=== PATIENT | male | born 1975 | race Caucasian/White ===

== ENCOUNTER 2023-07-31 06:37 | Outpatient (OUT) | payer OTHER, SELFPAY ==
[2023-07-31 07:22] LABS: Basophils Percent Auto 0.6 % (0.2-2.0); Eosinophils Absolute Auto 0.1 10^3/uL (0.0-0.7); Eosinophils Percent Auto 1.8 % (0.9-7.0); Hematocrit 44.4 % (42.0-54.0); Hemoglobin 14.9 g/dL (14.0-18.0); Immature Granulocytes Abs Auto 0.03 10^3/uL (0.00-0.03); Immature Granulocytes Pct Auto 0.4 % (0.0-0.5); Lymphocytes Absolute Auto 2.5 10^3/uL (1.2-3.8); Lymphocytes Percent Auto 35.2 % (20.5-60.0); Mean Corpuscular HGB Conc 33.6 g/dL (29.9-35.2); Mean Corpuscular Hemoglobin 30.7 pg (25.9-34.0); Mean Corpuscular Volume 91.4 fL (80.0-94.0); Mean Platelet Volume 10.5 fL (9.5-13.5); Monocytes Absolute Auto 0.6 10^3/uL (0.3-0.8); Monocytes Percent Auto 7.8 % (1.7-12.0); Neutrophils Absolute Auto 3.9 10^3/uL (1.4-6.5); Neutrophils Percent Auto 54.2 % (43.0-75.0); Platelet Count 218 10^3/uL (150-450); Red Blood Count 4.86 10^6/uL (4.70-6.10); Red Cell Distribution Width 12.9 % (11.0-15.0); White Blood Count 7.2 10^3/uL (4.0-11.0)
[2023-07-31 07:32] LABS: Erythrocyte Sedimentation Rate 21 mm/hr (<=15)
[2023-07-31 14:17] LABS: Alanine Aminotransferase 163 U/L (16-63); Albumin Level 3.9 g/dL (3.4-5.0); Alkaline Phosphatase 60 U/L (46-116); Anion Gap 9.4; Aspartate Amino Transferase 58 U/L (15-37); BUN Creatinine Ratio 16.7; Bilirubin Total 0.5 mg/dL (0.2-1.0); Carbon Dioxide 30.5 mmol/L (21.0-32.0); Chloride 103 mmol/L (98-107); Estimated GFR (African America >60 (>=60); Estimated GFR (Non-African Ame >60 (>=60); Globulin 3.9 g/dL; Glucose 90 mg/dL (74-106); Magnesium 2.3 mg/dL (1.8-2.4); Potassium 3.9 mmol/L (3.5-5.1); Sodium 139 mmol/L (136-145); Thyroid Stimulating Hormone 4.298 uIU/mL (0.358-3.740); Total Protein 7.8 g/dL (6.4-8.2)
[2023-07-31 14:18] LABS: C Reactive Protein <0.2 mg/dL (<=1.0)
[2023-07-31 17:25] LABS: Free T4 0.86 ng/dL (0.76-1.46)
[2023-08-01 06:08] LABS: Rheumatoid Factor (RF) 10.2 IU/mL (<14.0)
[2023-08-01 14:13] LABS: Antinuclear Antibodies, IFA Negative (.)
== END 2023-07-31 06:38 | disposition home or self-care (01) ==
LOC: LAB 06:42
DX: R51.9 Headache, unspecified (principal); R53.83 Other fatigue; M25.50 Pain in unspecified joint; E55.9 Vitamin D deficiency, unspecified; R20.2 Paresthesia of skin
CPT/HCPCS: 36415; 80053; 82306; 82607; 83735; 84439; 84443; 85025; 85652; 86038; 86140; 86430; 86431

== ENCOUNTER 2024-09-20 10:34 | Emergency (ER) | payer OTHER, SELFPAY ==
[2024-09-20 10:37] VITALS: BP 153/96; PULSE 71; TEMP 36.7; O2SAT 93; BMI 33.1
--- NOTE | 2024-09-20 10:40 | CT_ITS ---
The [address] [address] Patient Name: EVELYN CRUZ MRN: [id number] date: 1975 Sex: M Assigned Patient Location: ER Current Patient Location: ER Accession/Order Number: [id number] Exam Date: 09/20/2024 10:55 Report Date: 09/20/2024 11:42 At the request of: FRANKLIN LEE Procedure: CT abdomen pelvis wo con CT ABDOMEN AND PELVIS WITHOUT CONTRAST: 09/20/2024 10:55 AM EST Clinical Data: left flank pain hx of kidney stone Comparison: No previous Unenhanced helically acquired data per protocol. The lack of IV contrast material hampers evaluation of the viscera, for adenopathy, and of the vasculature. The lack of oral contrast medium to some extent hampers evaluation of the bowel. All CT scans at this facility use dose modulation, iterative reconstruction, and/or weight based dosing when appropriate to reduce radiation dose to as low as reasonably achievable. FINDINGS: LOWER THORAX: Probable areas of mild hypoventilation at the bases, left greater than right LIVER: Mild fatty infiltration. Superimposed 9 mm hypodense focus right lobe. SPLEEN: Enlarged to 16.5 cm in length. Homogeneous in density on this unenhanced study GB/BILIARY: No acute findings at CT. PANCREAS: No acute findings. ADRENALS: No acute findings. KIDNEYS/URETERS: Kidneys are symmetric in size and overall density on this unenhanced exam. There is slight left perinephric stranding. Several scattered calculi right kidney. No right hydronephrosis or hydroureter. No right ureteral calculi. Several left renal calculi are more numerous than on the right. There is moderate left hydronephrosis and hydroureter. At the very inner lip of the UVJ and predominantly extending into the urinary bladder there is a 6 mm calculus. VESSELS: No AAA ABDOMINAL NODES: No obvious adenopathy. PELVIC NODES: No obvious adenopathy. BLADDER: Contains a mild amount of fluid. REPRODUCTIVE: No acute finding at CT PERITONEUM: No free air. No free fluid. EXTRAPERITONEUM: No acute findings. BOWEL: No GI obstruction. Modest amount stool within the colon. Apparent moderate concentric thickening of the rectum. However, no peribowel stranding BODY WALL: Rectus sheaths are splayed. Midline abdominal wall is very thin. Small umbilical hernia containing fat but no bowel. BONES: Likely, hemangioma L5 vertebral body. At the inferior edge of the field symmetric longitudinally oriented lucencies within septations and thin margins in both intertrochanteric regions extending into the shafts. Entire inferior extent is not included on this exam. OTHER: None. CT/CT abdomen pelvis wo con IMPRESSION: 1. Bilateral nephrolithiasis. 2. Moderate left hydronephrosis and hydroureter. At the inner lip of the UVJ and predominantly in the bladder there is a 6 mm calculus. 3. Mild fatty infiltration of liver. Small superimposed hypodense focus not right lobe of liver is nonspecific. If desired, follow-up limited ultrasound 4. Splenomegaly. No evidence of adenopathy. 5.. Unusual findings in the proximal as described. Entire inferior extent is not covered on this exam. Recommend correlation with bilateral femur plain films. 6. Apparent moderate concentric thickening of the rectum but no peribowel stranding. Clinical correlation is needed. Electronically authenticated by: STEPHANIE OBRIEN Date: 09/20/2024 11:42
--- NOTE | 2024-09-20 10:46 | ED_ITS ---
HPI - Abdominal Pain General Chief Complaint: Abdominal Pain Stated Complaint: FLANK PAIN Time Seen by Provider: 09/20/24 10:40 Source: patient Mode of arrival: walk-in History of Present Illness HPI narrative: The patient is a 49 years old male with history of kidney stone the last episode he had was more than 2 years ago, he is coming to us with 5 days history of left-sided flank pain that is intermittent, the pain is crampy and he mentioned that for the last 5 days he notes he is not peeing enough but he is having urgency No fever no chills no nausea or vomiting and his last meal was yesterday Related Data Previous Rx's ?Medication ?Instructions ?Recorded cephalexin 500 mg capsule 500 mg PO Q8H 7 days #21 caps 09/20/24 naproxen 250 mg tablet 250 mg PO BID PRN pain #14 tabs 09/20/24 tamsulosin 0.4 mg capsule (Flomax) 0.4 mg PO DAILY #10 caps 09/20/24 Allergies Allergy/AdvReac Type Severity Reaction Status Date / Time erythromycin base Allergy Severe Hives Verified 09/20/24 10:40 Review of Systems ROS Status of ROS 10 or more systems reviewed and unremark able except as noted in history and below [facility] Medical History (Updated 09/20/24 @ 12:40 by Luciana Gamino MD) Fatty liver disease, nonalcoholic ?K76.0 - Fatty (change of) liver, not elsewhere classified (ICD-10) Herniated disc Kidney stone ?N20.0 - Calculus of kidney (ICD-10) Social History Little interest or pleasure in doing things: not at all Feeling down, depressed, or hopeless: not at all Exam Narrative Exam Narrative: Nurses notes and vital signs reviewed and patient is not hypoxic. General: Well-appearing and in no apparent distress. Skin: Warm, dry, no pallor noted. No rash. Head: Normocephalic, atraumatic. Neck: Supple, non-tender. Eye: Pupils are equal, round and EOMI. No scleral icterus. Ears, Nose, Mouth, and Throat: TM are clear, no nasal mucosal hypertrophy. Oral mucosa is moist, no posterior oropharynx erythema, uvula is mid-line Cardiovascular: Regular Rate and Rhythm without murmur, gallop or rub. Respiratory: No accessory muscle use or respiratory distress. Lungs are clear to auscultation, no wheezing, rales or rhonchi Chest Wall: no tenderness Back: No midline thoracic or lumbar vertebral tenderness. Left CVA tenderness Musculoskeletal: normal ROM, no calf or popliteal tenderness, no lower extremity edema/swelling GI: Abdomen is soft, non-distended. Normal bowel sounds. No masses appreciated. No tenderness to palpation. No rebound, guarding, or rigidity noted. Neurological: A&O x4. No cranial nerve dysfunction observed. No truncal ataxia. Moves all extremities. Sensation intact. Psychiatric: Cooperative and interactive. Normal mood and affect. Constitutional Vital Signs, click to edit/add: Last Vital Signs Temp 98.0 F 09/20/24 10:37 Pulse 71 09/20/24 10:37 Resp 18 09/20/24 10:37 BP 153/96 H 09/20/24 10:37 Pulse Ox 98 09/20/24 10:54 O2 Del Method Room Air 09/20/24 10:54 Course Vital Signs Vital signs: Vital Signs Temperature 98.0 F 09/20/24 10:37 Pulse Rate 71 09/20/24 10:37 Respiratory Rate 18 09/20/24 10:37 Blood Pressure 153/96 H 09/20/24 10:37 Pulse Oximetry 93 L 09/20/24 10:37 Oxygen Delivery Method Room Air 09/20/24 10:37 Temperature 98.0 F 09/20/24 10:37 Pulse Rate 71 09/20/24 10:37 Respiratory Rate 18 09/20/24 10:37 Blood Pressure 153/96 H 09/20/24 10:37 Pulse Oximetry 98 09/20/24 10:54 Oxygen Delivery Method Room Air 09/20/24 10:54 MDM - Abdominal Pain MDM Narrative Medical decision making narrative: CBC and chemistry showed no acute pathology The patient CAT scan shows hydronephrosis moderate on the left side with a 6 mm kidney stone just entering the UVJ junction The patient right now pain got better after Toradol and his urine shows only bacteria Patient was given a strainer provided with Flomax in addition to Keflex and NSAID for pain control Instructed to follow-up with urology tomorrow and also come back in case of any fever or increasing pain The patient also instructed on hydration and straining his urine It was noted in the CAT scan that the patient have the pathology detected at the femoral head I did an x-ray and clarified that it mostly nonaggressive possibly dysplasia or lipoma and I did speak with the patient explained to him what going on and explained also that he should be cautious with doing any jumping due to the location of the dysplasia The patient is to follow up with primary care physician in next 2-3 days or to return to the emergency department should any of the signs or symptoms worsen or new symptoms develop. The patient agrees with the following Diagnosis and Treatment plan and the patient will be discharged home. Lab Data Labs: Lab Results 09/20/24 09/20/24 Range/Units 10:46 11:08 WBC 8.7 (4.0-11.0) 10^3/uL RBC 5.07 (4.70-6.10) 10^6/uL Hgb 15.6 (14.0-18.0) g/dL Hct 45.1 (42.0-54.0) % MCV 89.0 (80.0-94.0) fL MCH 30.8 (25.9-34.0) pg MCHC 34.6 (29.9-35.2) g/dL RDW 12.6 (11.0-15.0) % Plt Count 210 (150-450) 10^3/uL MPV 10.4 (9.5-13.5) fL Neut % (Auto) 71.3 (43.0-75.0) % Lymph % (Auto) 20.2 L (20.5-60.0) % Bacon % (Auto) 6.4 (1.7-12.0) % Eos % (Auto) 1.4 (0.9-7.0) % Baso % (Auto) 0.5 (0.2-2.0) % Neut # (Auto) 6.2 (1.4-6.5) 10^3/uL Lymph # (Auto) 1.8 (1.2-3.8) 10^3/uL [place] # (Auto) 0.6 (0.3-0.8) 10^3/uL Eos # (Auto) 0.1 (0.0-0.7) 10^3/uL Baso # (Auto) 0.0 (0.0-0.1) 10^3/uL Abs Immat Gran (auto) 0.02 (0.00-0.03) 10^3/uL Imm/Tot Granulo (auto) 0.2 (0.0-0.5) % Sodium 142 (136-145) mmol/L Potassium 4.4 (3.5-5.1) mmol/L Chloride 103 (98-107) mmol/L Carbon Dioxide 28.5 (21.0-32.0) mmol/L Anion Gap 14.9 BUN 9.0 (7.0-18.0) mg/dL Creatinine 1.21 (0.70-1.30) mg/dL Est GFR ( Amer) >60 (>=60 mL/min/1.73m^2) Est GFR (Non-Af Amer) >60 (>=60 mL/min/1.73m^2) BUN/Creatinine Ratio 7.4 Glucose 169 H (74-106) mg/dL Calcium 9.5 (8.5-10.1) mg/dL Total Bilirubin 0.8 (0.2-1.0) mg/dL AST 53 H (15-37) U/L ALT 112 H (16-63) U/L Alkaline Phosphatase 97 (46-116) U/L Total Protein 8.0 (6.4-8.2) g/dL Albumin 3.8 (3.4-5.0) g/dL Globulin 4.2 g/dL Albumin/Globulin Ratio 0.9 Urine Color Yellow (YELLOW) Urine Clarity Clear (CLEAR) Urine pH 7.0 (5.0-9.0) Ur Specific [place] 1.020 (1.005-1.025) Urine Protein Trace (NEG/TRACE) mg/dL Urine Glucose (UA) Negative (NEGATIVE) mg/dL Urine Ketones Negative (NEGATIVE) mg/dL Urine Occult Blood Large A (NEGATIVE) Urine Nitrite Negative (NEGATIVE) Urine Bilirubin Negative (NEGATIVE) Urine Urobilinogen 1.0 (0.2-1.0) EU/dL Ur Leukocyte Esterase Negative (NEGATIVE) Urine RBC 20-50 A (0-2) #/HPF Urine WBC None seen (NONE SEEN) #/HPF Ur Squamous Epith Cells Rare (NONE/RARE) #/LPF Urine Crystals Seen A (None Seen) #/HPF Calcium Oxalate Crystal Rare Urine Bacteria Trace A (NONE SEEN) #/HPF Urine Casts None seen (NONE SEEN) #/LPF Urine Mucus Trace A (NONE SEEN) Ur Culture Indicated? No Discharge Plan Discharge Chief Complaint: Abdominal Pain Clinical Impression: Kidney calculus, Hydronephrosis Patient Disposition: Home, Self-Care Time of Disposition Decision: 12:40 Condition: Good Prescriptions / Home Meds: New tamsulosin [Flomax] 0.4 mg capsule 0.4 mg PO DAILY Qty: 10 0RF cephalexin 500 mg capsule 500 mg PO Q8H 7 Days Qty: 21 0RF naproxen 250 mg tablet 250 mg PO BID PRN (Reason: pain) Qty: 14 0RF Print Language: Mauritanian Instructions: Kidney Stones (ED), How to Strain Your Urine (ED), Hydronephrosis (ED) Referrals: Physician,Non-Staff, [Primary Care Provider] - 1 week Stanley Miranda MD [Physician] - As soon as possible Discharge Date/Time: 09/20/24 13:17
[2024-09-20] MEDS: KETOROLAC TROMETHAMINE 30 MG/ML VIAL 15 MG IVP (10:49)
[2024-09-20 10:54] VITALS: O2SAT 98
[2024-09-20 10:55] LABS: Basophils Percent Auto 0.5 % (0.2-2.0); Eosinophils Absolute Auto 0.1 10^3/uL (0.0-0.7); Eosinophils Percent Auto 1.4 % (0.9-7.0); Hematocrit 45.1 % (42.0-54.0); Hemoglobin 15.6 g/dL (14.0-18.0); Immature Granulocytes Abs Auto 0.02 10^3/uL (0.00-0.03); Immature Granulocytes Pct Auto 0.2 % (0.0-0.5); Lymphocytes Absolute Auto 1.8 10^3/uL (1.2-3.8); Lymphocytes Percent Auto 20.2 % (20.5-60.0); Mean Corpuscular HGB Conc 34.6 g/dL (29.9-35.2); Mean Corpuscular Hemoglobin 30.8 pg (25.9-34.0); Mean Platelet Volume 10.4 fL (9.5-13.5); Monocytes Absolute Auto 0.6 10^3/uL (0.3-0.8); Monocytes Percent Auto 6.4 % (1.7-12.0); Neutrophils Absolute Auto 6.2 10^3/uL (1.4-6.5); Neutrophils Percent Auto 71.3 % (43.0-75.0); Platelet Count 210 10^3/uL (150-450); Red Blood Count 5.07 10^6/uL (4.70-6.10); Red Cell Distribution Width 12.6 % (11.0-15.0); White Blood Count 8.7 10^3/uL (4.0-11.0)
[2024-09-20 11:09] LABS: Alanine Aminotransferase 112 U/L (16-63); Albumin Globulin Ratio 0.9; Albumin Level 3.8 g/dL (3.4-5.0); Alkaline Phosphatase 97 U/L (46-116); Anion Gap 14.9; Aspartate Amino Transferase 53 U/L (15-37); BUN Creatinine Ratio 7.4; Bilirubin Total 0.8 mg/dL (0.2-1.0); Calcium 9.5 mg/dL (8.5-10.1); Carbon Dioxide 28.5 mmol/L (21.0-32.0); Chloride 103 mmol/L (98-107); Estimated GFR (African America >60 (>=60 mL/min/1.73m^2); Estimated GFR (Non-African Ame >60 (>=60 mL/min/1.73m^2); Globulin 4.2 g/dL; Glucose 169 mg/dL (74-106); Potassium 4.4 mmol/L (3.5-5.1); Sodium 142 mmol/L (136-145)
[2024-09-20 11:15] LABS: Bilirubin Urine NEGATIVE (NEGATIVE); Blood Urine LARGE (NEGATIVE); Clarity Urine CLEAR (CLEAR); Color Urine YELLOW (YELLOW); Glucose Urine UA NEGATIVE (NEGATIVE); Ketones Urine NEGATIVE (NEGATIVE); Leukocyte Esterase Urine NEGATIVE (NEGATIVE); Nitrite Urine NEGATIVE (NEGATIVE); Protein Urine TRACE mg/dL (NEG/TRACE)
[2024-09-20 11:17] LABS: Urine Microscopic Indicated YES
[2024-09-20 11:24] LABS: WBC Urine NONE SEEN #/HPF (NONE SEEN)
[2024-09-20 11:25] LABS: Bacteria Urine TRACE #/HPF (NONE SEEN); Calcium Oxalate Crystals Urine RARE; Cast Seen? NONE SEEN #/LPF (NONE SEEN); Crystals Seen? Seen #/HPF (None Seen); Mucus Urine TRACE (NONE SEEN); RBC Urine 20-50 #/HPF (0-2); Squamous Epithelial Cell Urine RARE #/LPF (NONE/RARE); Urine Culture Indicated NO
--- NOTE | 2024-09-20 11:54 | XR_ITS ---
The [address] [address] Patient Name: EVELYN CRUZ MRN: [id number] date: 1975 Sex: M Assigned Patient Location: ER Current Patient Location: [facility] Accession/Order Number: [id number] Exam Date: 09/20/2024 12:05 Report Date: 09/20/2024 13:09 At the request of: FRANKLIN LEE Procedure: XR femur WENCESLAO 2V HISTORY: Bilateral femur pain. The patient was found to have a lucent foci in the proximal femora bilaterally on a CT scan of the abdomen and pelvis obtained earlier today. Please evaluate. XR femur WENCESLAO 2V: 09/20/2024 12:05 PM EST COMPARISON: CT scan abdomen and pelvis 09/20/2024. FINDINGS: No fracture or dislocation of either femur is seen. There are degenerative changes of the hips bilaterally with marginal osteophyte formation of the acetabulum. As better seen on the recent CT scan there are ovoid lucencies involving the intertrochanteric and subtrochanteric region of the proximal femora bilaterally. There are multiple thin sclerotic septations again seen within these findings. These measure approximately 8 cm in craniocaudal dimension. There is no endosteal scalloping or periosteal reaction. No other abnormality is seen within either femur. XR/XR femur WENCESLAO 2V IMPRESSION: 1. There is redemonstration of ovoid lucencies involving the intertrochanteric and subtrochanteric region of the proximal femora bilaterally as better seen on the recent CT scan of the abdomen and pelvis. 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 2. No acute bone or joint abnormality is seen. 3. 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 Electronically authenticated by: HERMILA RÍOS Date: 09/20/2024 13:09
== END 2024-09-20 13:17 | disposition home or self-care (01) ==
PROVIDERS: Emergency Provider Emergency Medicine
DX: N13.2 Hydronephrosis with renal and ureteral calculous obstruction (principal); Z87.442 Personal history of urinary calculi
CPT/HCPCS: 36415; 73552; 74176; 80053; 81001; 85025; 96374; 99285; J1885